=== PATIENT | male | born 1940 | race Caucasian/White ===

== ENCOUNTER 2017-06-09 02:11 | Emergency (ER) | payer MEDICARE ==
[~2017-06-09] VITALS: Ht 170.2 cm; Wt 86.2 kg
[~2017-06-09 02:11] MED LIST: ACET-868 PO; ALLA266C2 TP; FURO-144 PO; FURO40SO PO; NEOM1PAC2 TP; NICO-627 TD; POTA10CA43 PO
--- NOTE | 2017-06-09 02:21 | NUR ---
BBRA [id number] WITH C/O R ARM PAIN S/P INJURY 2 WEEKS AGO. + SENSATION IN R ARM. R ARM SENSITIVE TO TOUCH AND PT WITHDRAWS FROM TOUCH. R ARM MORE SWOLLEN THAN L ARM. UNABLE TO ASSESS CAP REFILL DUE TO PT YELLING AND STATING "DONT FUCKING TOUCH THAT ARM. YOU HAVE NO IDEA HOW MUCH IT HURTS." PT IS AAOX4, HOMELESS. RESP EVEN AND NONE LABORED. NO S/S OF ACUTE DISTRESS NOTED. VSS. PT PLACED ON MONITOR AND POX. CALL LIGHT PLACED WITHIN REACH. AWAITING MD BACON.
--- NOTE | 2017-06-09 02:28 | NUR ---
BEDSIDE FOR EVAL.
--- NOTE | 2017-06-09 03:25 | NUR ---
Patient is resting comfortably in bed with eyes closed. Easily aroused. VSS
--- NOTE | 2017-06-09 03:40 | NUR ---
EMT BEDSIDE FOR SLING.
--- NOTE | 2017-06-09 04:02 | NUR ---
Patient discharged in stable condition. Written and verbal after care instructions were given, but pt refused the paperwork and left it on the bed. VSS upon discharged. ambulated with steady gait out of ER.
[2017-06-09 04:07] VITALS: BP 124/72
== END 2017-06-09 04:10 | disposition home or self-care (01) ==
LOC: ER 02:14
DX: S42.301A Unspecified fracture of shaft of humerus, right arm, initial encounter for closed fracture (principal); F17.200 Nicotine dependence, unspecified, uncomplicated; Z59.0 Homelessness; X58.XXXA Exposure to other specified factors, initial encounter; Y93.89 Activity, other specified; Y92.89 Other specified places as the place of occurrence of the external cause; Y99.8 Other external cause status
CPT/HCPCS: 73060; 73090; 99284; A4606; Z7610

== ENCOUNTER 2017-06-10 21:35 | Emergency (ER) | payer MEDICARE ==
[~2017-06-10] VITALS: Ht 170.2 cm; Wt 83.9 kg
[2017-06-10 21:35] VITALS: BP 138/98
== END 2017-06-10 23:14 | disposition home or self-care (01) ==
LOC: ER 21:37
DX: S42.301A Unspecified fracture of shaft of humerus, right arm, initial encounter for closed fracture (principal); F17.200 Nicotine dependence, unspecified, uncomplicated; Z59.0 Homelessness; X58.XXXA Exposure to other specified factors, initial encounter; Y93.89 Activity, other specified; Y92.89 Other specified places as the place of occurrence of the external cause; Y99.8 Other external cause status
CPT/HCPCS: 99282; A4606; Z7610